=== PATIENT | female | born 1940 | race Caucasian/White ===

== ENCOUNTER → 2016-10-16 | Outpatient (CLI) | payer OTHER | LOC: FIMAGING 13:45 | PROVIDERS: ATTEND Physician Assistant | DX: M51.36 Other intervertebral disc degeneration, lumbar region (principal); M51.37 Other intervertebral disc degeneration, lumbosacral region; M48.07 Spinal stenosis, lumbosacral region; M48.06 Spinal stenosis, lumbar region; M46.96 Unspecified inflammatory spondylopathy, lumbar region; M46.97 Unspecified inflammatory spondylopathy, lumbosacral region ==

== ENCOUNTER 2017-01-17 19:24 | Emergency (ER) | payer OTHER ==
[2017-01-17 19:59] VITALS: RESP 18; TEMP 98.6
[2017-01-17] MEDS ORDERED: ONDANSETRON DISINTEGRATING 4 MG TAB PO ONE (20:02)
[2017-01-17] MEDS ORDERED: ONDANSETRON 4 MG/2 ML VIAL IVP ONE (20:05)
[2017-01-17] MEDS ORDERED: NS 1,000 ML IV ONE ×2 (20:05→20:11)
--- NOTE | 2017-01-17 20:05 | EDPHY ---
H & P Stated Complaint: c/o abd pain/n/v/d x 2 days HPI/ROS: HPI CHIEF COMPLAINT: Nausea, vomiting, diarrhea HISTORY OF PRESENT ILLNESS: This patient very pleasant 76-year-old female significant past medical history for recent total knee on her right knee on january 07, she has been taking extra-strength Tylenol, tramadol without opioids however she tells me she got significantly constipated since her knee replacement. Last night she got severely constipated she started taking multiple laxatives which includes Dulcolax, stool softeners and an enema, since doing so she has had persistent nausea vomiting and diarrhea. She denies any significant abdominal pain does have some epigastric abdominal cramps. No chest pain or shortness of breath. No fever. Describes her diarrhea as watery yellow. No blood. No black tarry stools. No vomiting of blood. States she is unable to tolerate p.o. and feeling ongoing nausea. Past Medical History: hypertension Past Surgical History: Right knee surgery replacement Social History: Denies daily use of drugs alcohol tobacco products Family History: Noncontributory ROS REVIEW OF SYSTEMS: A comprehensive 10 point review of systems is otherwise negative aside from elements mentioned in the history of present illness. Exam Constitutional appears well nontoxic, triage nursing summary reviewed, vital signs reviewed, awake/alert. Eyes normal conjunctivae and sclera, EOMI, PERRLA. HENT normal inspection, atraumatic, moist mucus membranes, no epistaxis, neck supple/ no meningismus, no raccoon eyes. Respiratory clear to auscultation bilaterally, normal breath sounds, no respiratory distress, no wheezing. Cardiovascular rate normal, regular rhythm, no murmur, no edema, distal pulses normal. Gastrointestinal soft, non-tender, no rebound, no guarding, normal bowel sounds, no distension, no pulsatile mass. Genitourinary no CVA tenderness. Musculoskeletal no midline vertebral tenderness, full range of motion, no calf swelling, no tenderness of extremities, no meningismus, good pulses, neurovascularly intact. Skin pink, warm, & dry, no rash, skin atraumatic. Neurologic awake, alert and oriented x 3, AAOx3, moves all 4 extremities equally, motor intact, sensory intact, CN II-XII intact, normal cerebellar, normal vision, normal speech. Psychiatric normal mood/affect. Heme/Lymph/Immune no lymphadenopathy. Differential Diagnosis: Includes but is not limited to in a particular order, constipation, diarrhea from laxative use, electrolyte disturbance, dehydration, gastritis. Medical Decision Making:Plan for this patient IV establishment, IV fluid bolus, IV Zofran for nausea, check abdominal blood work, KUB. Abdomen is very soft not tender, will perform KUB blood work and hydrations and re-evaluate. Re-evaluation: ED x-ray KUB one view: No air-fluid levels, no free air, a paucity of gas. Spine arthritic changes. Image interpreted by myself. [id number]: Re-examination at this time this patient is resting comfortably she tells me she feels much better after IV fluids and IV Zofran. IV Ativan. She is not vomiting. She ambulated well to the bathroom. She p.o. challenge well without vomiting. She would like to go home. Re-examination her abdomen is time soft nontender no guarding or peritoneal signs. Patient appears well feels well vital signs stable. Blood work and x-ray reviewed. She does understand return precautions which include return emergency room if you have worsening abdominal pain, fever vomiting she understands. Prescription given for Zofran. Source: Patient - Medical/Surgical History Hx Asthma: No Hx Chronic Respiratory Disease: No Hx Diabetes: No Hx Cardiac Disease: Yes Hx Renal Disease: No Hx Cirrhosis: No Hx Alcoholism: No Hx HIV/AIDS: No Hx Splenectomy or Spleen Trauma: No Other PMH: hypertension, arthritis, R knee replacement, tonsillectomy - Social History Smoking Status: Never smoked Constitutional: Initial Vital Signs Temperature (C) 37 C 01/17/17 19:53 Heart Rate 95 01/17/17 19:53 Respiratory Rate 18 01/17/17 19:53 Blood Pressure 180/97 H 01/17/17 19:53 O2 Sat (%) 100 01/17/17 19:53 O2 Delivery Mode Room Air Allergies/Adverse Reactions: propoxyphene [From Darvon] Allergy (Verified 01/17/17 19:59) Home Medications: Medication Instructions Recorded Amlodipine Besylate 01/17/17 Estradiol 01/17/17 Losartan Potassium 01/17/17 Norethindrone 01/17/17 Ondansetron HCl [Zofran] 4 mg PO Q4-6PRN PRN #10 tablet 01/17/17 traMADol 01/17/17 Medical Decision Making - Data Points Laboratory Results: Laboratory Results 01/17/17 20:25 01/17/17 20:25 01/17/17 01/17/17 01/17/17 20:25 20:25 20:25 WBC 11.56 10^3/uL H 10^3/uL (3.80-9.50) RBC 3.40 10^6/uL L 10^6/uL (4.18-5.33) Hgb 11.1 g/dL L g/dL (12.6-16.3) Hct 33.2 % L % (38.0-47.0) MCV 97.6 fL fL (81.5-99.8) MCH 32.6 pg pg (27.9-34.1) MCHC 33.4 g/dL g/dL (32.4-36.7) RDW 13.7 % % (11.5-15.2) Plt Count 408 10^3/uL H 10^3/uL (150-400) MPV 10.0 fL fL (8.7-11.7) Neut % (Auto) 82.1 % H % (39.3-74.2) Lymph % (Auto) 7.9 % L % (15.0-45.0) [place]wall % (Auto) 8.0 % % (4.5-13.0) Eos % (Auto) 0.6 % % (0.6-7.6) Baso % (Auto) 0.4 % % (0.3-1.7) Nucleat RBC Rel Count 0.0 % % (0.0-0.2) Absolute Neuts (auto) 9.50 10^3/uL H 10^3/uL (1.70-6.50) Absolute Lymphs (auto) 0.91 10^3/uL L 10^3/uL (1.00-3.00) Absolute Monos (auto) 0.92 10^3/uL H 10^3/uL (0.30-0.80) Absolute Eos (auto) 0.07 10^3/uL 10^3/uL (0.03-0.40) Absolute Basos (auto) 0.05 10^3/uL 10^3/uL (0.02-0.10) Absolute Nucleated RBC 0.00 10^3/uL 10^3/uL (0-0.01) Immature Gran % 1.0 % % (0.0-1.1) Immature Gran # 0.11 10^3/uL H 10^3/uL (0.00-0.10) PT 14.2 SEC SEC (12.0-15.0) INR 1.11 (0.83-1.16) APTT 26.5 SEC SEC (23.0-38.0) VBG Lactic Acid Sodium 135 mEq/L mEq/L (134-144) Potassium 3.9 mEq/L mEq/L (3.5-5.2) Chloride 101 mEq/L mEq/L (97-110) Carbon Dioxide 23 mEq/l mEq/l (22-31) Anion Gap 11 mEq/L mEq/L (8-16) BUN 16 mg/dL mg/dL (7-23) Creatinine 0.8 mg/dL mg/dL (0.6-1.0) Estimated GFR > 60 Glucose 109 mg/dL H mg/dL (70-100) Calcium 9.9 mg/dL mg/dL (8.5-10.4) Total Bilirubin 1.1 mg/dL mg/dL (0.1-1.4) Conjugated Bilirubin 0.4 mg/dL mg/dL (0.0-0.5) Unconjugated Bilirubin 0.7 mg/dL mg/dL (0.0-1.1) AST 41 IU/L IU/L (14-46) ALT 51 IU/L IU/L (9-52) Alkaline Phosphatase 74 IU/L IU/L (38-126) Total Protein 6.8 g/dL g/dL (6.3-8.2) Albumin 4.3 g/dL g/dL (3.5-5.0) Lipase 95.0 IU/L IU/L (23-300) 01/17/17 20:25 WBC RBC Hgb Hct MCV MCH MCHC RDW Plt Count MPV Neut % (Auto) Lymph % (Auto) Stonewall % (Auto) Eos % (Auto) Baso % (Auto) Nucleat RBC Rel Count Absolute Neuts (auto) Absolute Lymphs (auto) Absolute Monos (auto) Absolute Eos (auto) Absolute Basos (auto) Absolute Nucleated RBC Immature Gran % Immature Gran # PT INR APTT VBG Lactic Acid 1.7 mmol/L mmol/L (0.7-2.1) Sodium Potassium Chloride Carbon Dioxide Anion Gap BUN Creatinine Estimated GFR Glucose Calcium Total Bilirubin Conjugated Bilirubin Unconjugated Bilirubin AST ALT Alkaline Phosphatase Total Protein Albumin Lipase Medications Given: Discontinued Medications Sodium Chloride (Ns) 1,000 mls @ 0 mls/hr IV ONCE ONE PRN Reason: Wide Open Stop: 01/17/17 20:06 Last Admin: 01/17/17 20:30 Dose: 1,000 mls Sodium Chloride (Ns) 1,000 mls @ 0 mls/hr IV ONCE ONE PRN Reason: Wide Open Stop: 01/17/17 20:12 Last Admin: 01/17/17 20:31 Dose: 1,000 mls Lorazepam (Ativan Injection) 0.5 mg IVP EDNOW ONE Stop: 01/17/17 20:43 Last Admin: 01/17/17 20:52 Dose: 0.5 mg Ondansetron HCl (Zofran Odt) 4 mg PO EDNOW ONE Stop: 01/17/17 20:03 Last Admin: 01/17/17 20:06 Dose: 4 mg Ondansetron HCl (Zofran) 4 mg IVP EDNOW ONE Stop: 01/17/17 20:06 Last Admin: 01/17/17 20:30 Dose: 4 mg Departure - Departure Disposition: Home, Routine, Self-Care Clinical Impression: Vomiting and diarrhea Condition: Good Instructions: Acute Nausea and Vomiting (ED), Acute Diarrhea (ED) Additional Instructions: 1. Please return to the emergency room if he develops worsening vomiting or diarrhea. Referrals: Anders Simmons MD [Primary Care Provider] - As per Instructions Prescriptions: Ondansetron HCl [Zofran] 4 mg PO Q4-6PRN PRN #10 tablet PRN Reason: Nausea/Vomiting, Use 1st
[2017-01-17 20:38] LABS: ABSOLUTE IMMATURE GRANULOCYTES 0.11 10^3/uL (0.00-0.10); ADD DIFF? NO; ADD MORPH? NO; ADD SCAN? NO; ATYPICAL LYMPHOCYTE FLAG 0 (0-99); FRAGMENT RBC FLAG 0 (0-99); HEMATOCRIT 33.2 % (38.0-47.0); HEMOGLOBIN 11.1 g/dL (12.6-16.3); LEFT SHIFT FLG 0 (0-99); LIPEMIA HEMOLYSIS FLAG 80 (0-99); MEAN CELL HEMOGLOBIN 32.6 pg (27.9-34.1); MEAN CELL HEMOGLOBIN CONCENTR. 33.4 g/dL (32.4-36.7); MEAN CELL VOLUME 97.6 fL (81.5-99.8); PLATELET CLUMPS FLAG 10 (0-99); PLATELET COUNT 408 10^3/uL (150-400); RED CELL DISTRIBUTION WIDTH 13.7 % (11.5-15.2)
[2017-01-17] MEDS ORDERED: LORazepam 2 MG/ML INJ IVP ONE (20:42)
[2017-01-17 20:48] LABS: INR 1.11 (0.83-1.16); PROTIME(PATIENT) 14.2 SEC (12.0-15.0)
[2017-01-17 20:49] LABS: APTT 26.5 SEC (23.0-38.0)
[2017-01-17 21:12] LABS: ALANINE AMINOTRANSFERASE 51 IU/L (9-52); ALBUMIN 4.3 g/dL (3.5-5.0); ALKALINE PHOSPHATASE 74 IU/L (38-126); ANION GAP 11 mEq/L (8-16); ASPARTATE AMINOTRANSFERASE 41 IU/L (14-46); BILIRUBIN,TOTAL 1.1 mg/dL (0.1-1.4); BILIRUBIN-CONJUGATED 0.4 mg/dL (0.0-0.5); BILIRUBIN-UNCONJUGATED 0.7 mg/dL (0.0-1.1); CALCIUM 9.9 mg/dL (8.5-10.4); CARBON DIOXIDE 23 mEq/l (22-31); CHLORIDE 101 mEq/L (97-110); CREATININE 0.8 mg/dL (0.6-1.0); GLOMERULAR FILTRATION RATE > 60; GLUCOSE 109 mg/dL (70-100); POTASSIUM 3.9 mEq/L (3.5-5.2); SODIUM 135 mEq/L (134-144); TOTAL PROTEIN 6.8 g/dL (6.3-8.2)
[2017-01-17 21:38] LABS: COLOR PALE YELLOW; LEUKOCYTE ESTERASE,URINE NEGATIVE (NEGATIVE); NITRITE,URINE NEGATIVE (NEGATIVE)
[2017-01-17] MEDS ORDERED: ONDANSETRON 4MG PREPACK#2 BTL TAKEHOME ONE (21:38)
[2017-01-17 21:58] VITALS: BP 179/79; PULSE 91; O2SAT 94
== END 2017-01-17 21:57 | disposition home or self-care (01) ==
DX: R11.10 Vomiting, unspecified (principal); I10 Essential (primary) hypertension; R19.7 Diarrhea, unspecified
CPT/HCPCS: 74000; 96361; 96374; 96375; 99285; J2060; J2405

== ENCOUNTER 2017-01-19 10:39 | Emergency (ER) | payer OTHER ==
[2017-01-19] MEDS ORDERED: NS 1,000 ML IV ONE ×2 (10:51→11:37)
[2017-01-19 10:54] VITALS: TEMP 97.5
[2017-01-19] MEDS ORDERED: LORazepam 2 MG/ML INJ IVP ONE (11:29)
[2017-01-19] MEDS ORDERED: ONDANSETRON 4 MG/2 ML VIAL IVP ONE (11:29)
--- NOTE | 2017-01-19 11:29 | EDPHY ---
H & P Stated Complaint: N/v/d x 4 days--was constipated post op knee then laxatives Time Seen by Provider: 01/19/17 10:50 HPI/ROS: CHIEF COMPLAINT: nausea, decreased appetite HISTORY OF PRESENT ILLNESS: 76-year-old female presents emergency department complaining of nausea and decreased appetite. Patient was seen in the emergency department 2 days ago for nausea, vomiting and diarrhea. Patient had a total knee replacement on January 08 and has been suffering with constipation since. Patient started taking multiple different laxatives 4 days ago and since this time has had nausea vomiting and diarrhea. Patient reports she feels dehydrated and nauseous. She was able to keep down a banana today. Patient denies abdominal pain, no fevers, no knee complaints. Patient was seen in the emergency department 2 days ago for the same complaints had a normal KUB and IV fluids. REVIEW OF SYSTEMS: A comprehensive 10 point review of systems is otherwise negative aside from elements mentioned in the history of present illness. Source: Patient Exam Limitations: No limitations - Personal History Current Tetanus/Diphtheria Vaccine: Unsure Current Tetanus Diphtheria and Acellular Pertussis (TDAP): Unsure - Medical/Surgical History Hx Asthma: No Hx Chronic Respiratory Disease: No Hx Diabetes: No Hx Cardiac Disease: No Hx Renal Disease: No Hx Cirrhosis: No Hx Alcoholism: No Hx HIV/AIDS: No Hx Splenectomy or Spleen Trauma: No Other PMH: hypertension, arthritis, R knee replacement, tonsillectomy - Social History Smoking Status: Never smoked Constitutional: Initial Vital Signs Temperature (C) 36.4 C 01/19/17 10:43 Heart Rate 87 01/19/17 10:43 Respiratory Rate 16 01/19/17 10:43 Blood Pressure 123/87 H 01/19/17 10:43 O2 Sat (%) 100 01/19/17 10:43 O2 Delivery Mode Room Air Allergies/Adverse Reactions: propoxyphene [From Darvon] Allergy (Verified 01/17/17 19:59) Home Medications: Medication Instructions Recorded Amlodipine Besylate 01/17/17 Estradiol 01/17/17 Losartan Potassium 01/17/17 Norethindrone 01/17/17 Medical Decision Making ED Course/Re-evaluation: IV established, chemistry panel obtained, sodium is noted to be 129, other electrolytes are unremarkable. Patient is given 2 L of normal saline, 4 mg of Zofran and 1 mg of lorazepam. She reports feeling much better, tolerated p.o. well and will be discharged home. Patient is given strict return precautions for any worsening symptoms, she agrees to follow up with her primary care doctor next week for re-evaluation. Differential Diagnosis: Diagnosis considered but not limited to hyponatremia, hypovolemia, dehydration, diarrhea, small-bowel obstruction - Data Points Laboratory Results: Laboratory Results 01/19/17 10:55 01/19/17 10:55 Sodium 129 mEq/L L mEq/L (134-144) Potassium 3.7 mEq/L mEq/L (3.5-5.2) Chloride 94 mEq/L L mEq/L (97-110) Carbon Dioxide 24 mEq/l mEq/l (22-31) Anion Gap 11 mEq/L mEq/L (8-16) BUN 21 mg/dL mg/dL (7-23) Creatinine 0.8 mg/dL mg/dL (0.6-1.0) Estimated GFR > 60 Glucose 99 mg/dL mg/dL (70-100) Calcium 9.9 mg/dL mg/dL (8.5-10.4) Medications Given: Discontinued Medications Sodium Chloride (Ns) 1,000 mls @ 0 mls/hr IV ONCE ONE PRN Reason: Wide Open Stop: 01/19/17 10:52 Last Admin: 01/19/17 11:00 Dose: 1,000 mls Sodium Chloride (Ns) 1,000 mls @ 0 mls/hr IV ONCE ONE PRN Reason: Wide Open Stop: 01/19/17 11:38 Last Admin: 01/19/17 11:45 Dose: 1,000 mls Lorazepam (Ativan Injection) 1 mg IVP EDNOW ONE Stop: 01/19/17 11:30 Last Admin: 01/19/17 11:45 Dose: 1 mg Ondansetron HCl (Zofran) 4 mg IVP EDNOW ONE Stop: 01/19/17 11:30 Last Admin: 01/19/17 11:45 Dose: 4 mg Departure - Departure Disposition: Home, Routine, Self-Care Clinical Impression: Nausea Diarrhea Qualifiers: Diarrhea type: unspecified type Qualified Code(s): R19.7 - Diarrhea, unspecified Condition: Good Instructions: Acute Nausea and Vomiting (ED) Additional Instructions: Stop taking your pain medication, drink plenty of fluids. Eat foods high in sodium over the next few days. Return to the emergency department for worsening symptoms, new symptoms or concerns. Follow-up with your primary care doctor this week for symptoms that are not improving. Referrals: Anders Simmons MD [Primary Care Provider] - As per Instructions
[2017-01-19 11:34] LABS: ANION GAP 11 mEq/L (8-16); CALCIUM 9.9 mg/dL (8.5-10.4); CARBON DIOXIDE 24 mEq/l (22-31); CHLORIDE 94 mEq/L (97-110); CREATININE 0.8 mg/dL (0.6-1.0); GLOMERULAR FILTRATION RATE > 60; GLUCOSE 99 mg/dL (70-100); POTASSIUM 3.7 mEq/L (3.5-5.2); SODIUM 129 mEq/L (134-144)
[2017-01-19 13:14] VITALS: BP 155/67; PULSE 86; RESP 18; O2SAT 94
== END 2017-01-19 13:40 | disposition home or self-care (01) ==
DX: R11.0 Nausea (principal); R19.7 Diarrhea, unspecified; I10 Essential (primary) hypertension
CPT/HCPCS: 96361; 96374; 96375; 99284; J2060; J2405

== ENCOUNTER → 2017-03-04 | Outpatient (CLI) | payer OTHER | LOC: FIMAGING 13:15 | PROVIDERS: ATTEND Internal Medicine | DX: Z12.31 Encounter for screening mammogram for malignant neoplasm of breast (principal) | CPT/HCPCS: G0202 ==

== ENCOUNTER → 2017-04-13 | Outpatient (CLI) | payer OTHER | LOC: FIMAGING 12:24 | PROVIDERS: ATTEND Neurological Surgery | DX: M54.2 Cervicalgia (principal); M48.06 Spinal stenosis, lumbar region; M50.30 Other cervical disc degeneration, unspecified cervical region; R93.8 Abnormal findings on diagnostic imaging of other specified body structures ==

== ENCOUNTER → 2017-04-30 | Outpatient (CLI) | payer OTHER | LOC: FIMAGING 11:39 | PROVIDERS: ATTEND Physician Assistant Surgical | DX: M50.30 Other cervical disc degeneration, unspecified cervical region (principal); M84.88 Other disorders of continuity of bone, other site ==

== ENCOUNTER → 2017-08-01 | Outpatient (CLI) | payer OTHER | LOC: FIMAGING 10:48 | PROVIDERS: ATTEND Internal Medicine | DX: M85.80 Other specified disorders of bone density and structure, unspecified site (principal); M50.30 Other cervical disc degeneration, unspecified cervical region | CPT/HCPCS: 78306; A9503 ==

== ENCOUNTER → 2018-03-07 | Outpatient (CLI) | payer OTHER | LOC: FIMAGING 11:25 | PROVIDERS: ATTEND Physician Assistant | DX: Z12.31 Encounter for screening mammogram for malignant neoplasm of breast (principal); Z98.82 Breast implant status ==

== ENCOUNTER → 2018-08-15 | Outpatient (CLI) | payer OTHER | LOC: FIMAGING 11:15 | PROVIDERS: ATTEND Physician Assistant | DX: Z13.820 Encounter for screening for osteoporosis (principal); M85.89 Other specified disorders of bone density and structure, multiple sites; Z78.0 Asymptomatic menopausal state ==